=== PATIENT | male | born 1940 | race Caucasian/White ===

== ENCOUNTER → 2022-11-02 | Outpatient (CLI) | payer MEDICARE, SELFPAY ==
--- NOTE | 2022-11-02 12:48 | CT_ITS ---
INDICATION: Chest and back pain, possible thoracic aortic aneurysm EXAMINATION: CT CHEST WITH CONTRAST - CT Chest W/ Contrast Injection TECHNIQUE: Helically acquired images were obtained of the chest following IV contrast. A radiation dose optimization technique was used for this scan. IV Contrast dosage and agent: COMPARISON: None. FINDINGS: LUNGS, PLEURA AND LARGE AIRWAYS: Lung windows show the lungs to be normally expanded. No superimposed infiltrate, effusion, or suspicious noncalcified nodule. There is a minimal amount of bibasilar atelectasis. THYROID: No thyroid lesions. HEART AND PERICARDIUM: There has been a remote CABG. No pericardial effusion. There is aneurysmal dilatation of the descending thoracic aorta at 5.28 cm without evidence of dissection. No aneurysmal dilatation of the descending thoracic aorta noted. VESSELS: No obvious central pulmonary embolism although this study was not performed with the pulmonary embolism protocol. MEDIASTINUM AND AHMET: No suspicious mediastinal or hilar adenopathy. Esophagus is unremarkable. No hiatal hernia. UPPER ABDOMEN: Limited cuts through the upper abdomen show fatty infiltration of the liver, pancreatic atrophy BONES: Bony structures show degenerative change CT/Chest WITH Contrast IMPRESSION: Aneurysm dilatation of the descending thoracic aorta without evidence of dissection, no periaortic fluid to suspect leak or rupture No acute pulmonary process Remote CABG Electronically Signed: Wisam Lacey MD at 13:38 EDT ,
[2022-11-02 13:35] LABS: CREATININE FINGERSTICK 1.1 mg/dL (0.70-1.30); EGFR FINGERSTICK > 60.0000 mL/min (>60)
== END | disposition home or self-care (01) ==
LOC: CT 12:43
PROVIDERS: PCP Family Medicine; Referring Provider Family Medicine; Visit Provider Family Medicine
DX: I71.20 Thoracic aortic aneurysm, without rupture, unspecified (principal)
CPT/HCPCS: 71260; Q9967

== ENCOUNTER → 2022-11-23 | Outpatient (CLI) | payer MEDICARE, SELFPAY ==
--- NOTE | 2022-11-23 09:51 | AAVD_ITS ---
Reason For Study: Vascular Disease Aorta Measurements Aorta Doppler Measurements Proximal aorta measures3.46cm x 3.43cm. in cross- Peak systolic flow velocities within the proximal sectional axis. aorta measure 93 cm/sec. Proximal aorta measures3.02cm. in longitudinal Peak systolic flow velocities within the mid aorta axis. measure 65 cm/sec. Mid aorta measures3.62cm x 3.72cm. in cross- Peak systolic flow velocities within the distal sectional axis. aorta measure 53 cm/sec. Mid aorta measures3.40cm. in longitudinal axis. Intraluminal thrombus noted Mid Aorta. Distal aorta measures2.38cm x 2.40cm. in cross- sectional axis. Distal aorta measures2.39cm. in longitudinal axis. Left Iliac Artery Left iliac artery measures 1.28cm x 1.15 cm. in the cross-sectional axis. Left iliac artery measures 1.22 cm. in the longitudinal axis. Peak systolic velocity in the left iliac artery measures 102 cm/sec. Right Iliac Artery Right iliac artery measures 0.92cm x 1.13 cm. in the cross-sectional axis. Right iliac artery measures 1.01 cm. in the longitudinal axis. Peak systolic velocity in the right iliac artery measures 89 cm/sec. Procedure Aorta IVC Iliac vasculature or bypass grafts [id number]. Exam performed in department. VL/Abd Aortic/IVC Duplex scan Interpretation Summary Aortic aneurysm 3.72cm. Ordering Physician: Michele Han Referring Physician: Geovanny Moreno Performed By: Marietta Del Castillo, ELBA, RVT
--- NOTE | 2022-11-23 09:52 | ART_ITS ---
Reason For Study: Vascular Disease Procedure A bilateral lower extremity continuous wave Doppler with analog waveform analysis and ankle brachial indexes. Left Segmental Pressures Left brachial= 179mmHg. Left posterior tibial artery = 193mmHg. Left dorsalis pedis artery = 184mmHg. Left digit = 190 mmHg. Right Segmental Pressures Right brachial= 175mmHg. Right posterior tibial artery = 205mmHg. Right dorsalis pedis artery = 185mmHg. Right digit = 170 mmHg. Indices The right ankle brachial index by the posterior tibial artery is 1.15. The right ankle brachial index by the dorsalis pedis is 1.03. The right digital-brachial index is 0.95. The left ankle brachial index by the posterior tibial artery is 1.08. The left ankle brachial index by the dorsalis pedis is 1.03. The left digital-brachial index is 1.06. VL/Ankle Brachial Index Interpretation Summary Bilateral no significant occlussive disease with triphasic flow and KEVIN 1.15 an d 1.08. Ordering Physician: Michele Han Referring Physician: Geovanny Moreno Performed By: Marietta Del Castillo RDCS/RVT
== END | disposition home or self-care (01) ==
LOC: CVS 09:48
PROVIDERS: PCP Family Medicine; Referring Provider Surgery Vascular Surgery; Visit Provider Surgery Vascular Surgery
DX: I71.43 Infrarenal abdominal aortic aneurysm, without rupture (principal); I73.9 Peripheral vascular disease, unspecified
CPT/HCPCS: 93922; 93978

== ENCOUNTER → 2023-08-05 | Outpatient (CLI) | payer MEDICARE, SELFPAY ==
--- NOTE | 2023-08-05 08:23 | CT_ITS ---
STUDY: CTA ABDOMEN AND PELVIS WITH CONTRAST REASON FOR EXAM: Male, 83 years old. 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 IV 100mL Isovue-370 was administered. Sagittal and coronal images were reconstructed. 3-D images were reconstructed. Individualized dose optimization techniques were used for this CT. COMPARISON: None. FINDINGS: Minimal degree of bibasilar atelectasis and/or scarring. Coronary artery calcification. Prior CABG . Normal liver. There are surgical clips in the gallbladder fossa consistent with a prior cholecystectomy. Normal spleen. Normal pancreas. Normal bilateral adrenal glands. Normal right kidney. This is 1.7 cm cyst in the posterior inferior aspect of the left kidney. This are 1.2 cm nonobstructive calculus in the midportion of the left kidney. Normal visualized stomach. Normal small intestine. There are multiple colonic diverticula consistent with diverticulosis. The appendix is visualized and appears normal. There is a saccular juxtarenal abdominal aortic aneurysm with a transverse dimension of 5 cm. Mural thrombus is seen. The distal abdominal aorta is tortuous. Calcific plaques are seen. Normal inferior vena cava. Normal retroperitoneum. Normal urinary bladder. There is enlargement of the prostate gland. The prostate measures 4.3 cm 5.2 cm. This causes indentation of the bladder base. Normal abdominal wall. There are diffuse degenerative changes of the visualized lumbar spine. Straightening of the normal lumbar lordosis. Status post left total hip replacement. CT/CTA Abd/Pelvis W/WO Contrast IMPRESSION: Saccular juxtarenal abdominal aortic aneurysm with a transverse dimension of 5 cm. Mural thrombus. Prostatic enlargement. Sigmoid diverticulosis. Electronically Signed: Sagar Armenta MD at 13:33 EST ,
[2023-08-05 08:50] LABS: CREATININE FINGERSTICK < 1.0 mg/dL (0.70-1.30); EGFR FINGERSTICK > 60.0000 mL/min (>60)
== END | disposition home or self-care (01) ==
LOC: CT 08:21
PROVIDERS: PCP Family Medicine; Referring Provider Surgery Vascular Surgery; Visit Provider Surgery Vascular Surgery
DX: I71.42 Juxtarenal abdominal aortic aneurysm, without rupture (principal); Z95.1 Presence of aortocoronary bypass graft
CPT/HCPCS: 74174; Q9967

== ENCOUNTER → 2024-02-07 | Outpatient (CLI) | payer MEDICARE, SELFPAY ==
--- NOTE | 2024-02-07 12:46 | CT_ITS ---
INDICATION: AAA, descending TAA EXAMINATION: CTA CHEST, ABDOMEN AND PELVIS WITH CONTRAST - TECHNIQUE: A CTA of the chest, abdomen, and pelvis is obtained with sagittal and coronal reconstructed MIP views. Three-dimensional surface rendered sequence of the thoracic and abdominal aorta was obtained. The protocol utilizes one or more of the following dose reduction techniques: automated exposure control, adjustment of mA and/or kV according to patient size,and/or use of iterative reconstruction technique. 100 mL of Isovue-370. Oral contrast: None. RADIATION DOSAGE (If Supplied By Facility): CTDIvol = ( 18.98 ) mGy, DLP = ( 1253.05 ) mGycm COMPARISON: Prior study dated: 08/05/2023 FINDINGS: CT CHEST: THORACIC AORTA: Ascending thoracic aortic aneurysm measuring up to 4.7 cm is again seen. Tortuosity of the descending thoracic aorta. Focal saccular dilatation of the left lateral aspect of the mid descending thoracic aorta measuring up to 3.1 cm. No evidence of dissection. ABDOMINAL AORTA: Atherosclerotic calcifications and tortuosity of the abdominal aorta. Saccular aneurysm about the level of the renal arteries measuring up to 5.2 cm in transverse diameter extending for a length of approximately 4.5 cm with mural thrombus peripherally essentially unchanged since prior exam. There is focal collection or ulceration laterally. LUNGS: The lungs are well-expanded without acute or chronic changes. No effusions or pneumothorax. MEDIASTINUM: The thyroid gland is normal. No mediastinal or hilar adenopathy. HEART: The heart is enlarged. No evidence of pericardial effusion. Coronary calcifications are seen. CT ABDOMEN AND PELVIS: LIVER: No focal lesion is seen in the liver considering arterial phase of scanning. GALLBLADDER: Absent gallbladder likely surgically removed. SPLEEN: Heterogeneous enhancement due to arterial phase. No focal lesion is definitely seen. PANCREAS: Atrophic pancreas. No focal lesion is seen. ADRENAL GLANDS: No adrenal nodules. KIDNEYS AND URETERS: 1.4 cm nonobstructing stone in the midpole of the left kidney. 2 cm cyst in the left kidney appears to be simple and unchanged for which no further follow-up is needed. No evidence of hydronephrosis. STOMACH: Normal. SMALL BOWEL: No abnormal distention of the small bowel. MESENTERY: No mesenteric inflammation. No ascites. COLON: Sigmoid diverticulosis. No evidence of acute diverticulitis. The colon otherwise is normal. There is a large fatty ileocecal valve. APPENDIX: No evidence of acute appendicitis. IVC: Not well enhanced. RETROPERITONEUM: No retroperitoneal lymphadenopathy. PELVIC STRUCTURES: The bladder is not distended and difficult to evaluate. Enlarged prostate. SOFT TISSUES ABDOMEN: The anterior abdominal wall is normal. SOFT TISSUE CHEST: The extrathoracic soft tissues are normal. BONES: Left hip arthroplasty. CT/CTA Chst, Abd, Pel W and/or WO IMPRESSION: 1. Ascending thoracic aortic aneurysm essentially unchanged prior exam. 2. Focal saccular abdominal aortic aneurysm about the level of the renal arteries for which vascular surgery consultation is recommended. 3. Diverticulosis without evidence of acute diverticulitis. 4. Nonobstructing stone in the left kidney without evidence of hydronephrosis. 5. Enlarged prostate. Normal contrast-enhanced CT of the chest. Normal contrast-enhanced CT of the abdomen and pelvis. Electronically Signed: Yanick Cook MD at 14:44 EDT ,
[2024-02-07 13:38] LABS: CREATININE FINGERSTICK 1.2 mg/dL (0.70-1.30)
== END | disposition home or self-care (01) ==
LOC: CT 12:42
PROVIDERS: PCP Family Medicine; Referring Provider Physician Assistant; Visit Provider Physician Assistant
DX: I71.40 Abdominal aortic aneurysm, without rupture, unspecified (principal); I71.23 Aneurysm of the descending thoracic aorta, without rupture
CPT/HCPCS: 71275; 74174; Q9967

== ENCOUNTER → 2024-05-29 | Outpatient (CLI) | payer MEDICARE, SELFPAY | END | disposition home or self-care (01) | LOC: PSN 08:52 | PROVIDERS: PCP Family Medicine; Referring Provider Internal Medicine Cardiovascular Disease; Visit Provider Internal Medicine Cardiovascular Disease | DX: Z95.1 Presence of aortocoronary bypass graft (principal); Z98.61 Coronary angioplasty status | CPT/HCPCS: 93225; 93226 ==

== ENCOUNTER → 2024-06-01 | Outpatient (CLI) | payer MEDICARE, SELFPAY ==
--- NOTE | 2024-06-01 06:48 | ECHOD_ITS ---
Reason For Study: CORONARY ARTERY DISEASE Procedure This was a 2D Doppler, Color Flow transthoracic echocardiogram. Exam performed in department. Left Ventricle Normal LV size. Moderate concentric left ventricular hypertrophy. Left ventricular systolic function is normal. The left ventricular ejection fraction is 60 %. Stage 1 diastolic dysfunction. No regional wall motion abnormalities noted. Right Ventricle Normal RV size. Normal systolic function. Atria Normal left atrium. Normal right atrium. Mitral Valve Normal mitral valve. Tricuspid Valve Normal tricuspid valve. Aortic Valve Trisinus/trileaflet aortic valve. Pulmonic Valve Normal pulmonic valve. Trivial pulmonic valve insufficiency. Great Vessels Mild to moderately dilated aortic root. The pulmonary artery is normal size. Inferior vena cava collapse with sniff. Pericardium/Pleural No pericardial effusion. MMode/2D Measurements & Calculations LVIDd: 4.0 cm IVSd: 1.7 cm LVOT diam: 2.2 cm LVIDs: 2.3 cm LVPWd: 1.4 cm LVOT area: 3.7 cm2 RVDd: 4.0 cm FS: 42.6 % asc Aorta Diam: 4.0 cm LAV(MOD-bp): 38.6 ml LVAd ap4: 28.8 cm2 LAV(MOD-bp) Indexed: 18.5 ml/m2 LVLd ap4: 7.8 cm LAV(MOD-sp2): 41.2 ml EDV(MOD-sp4): 85.0 ml LAV(MOD-sp4): 36.6 ml EDV(sp4-el): 89.7 ml LVAs ap4: 16.9 cm2 LVLs ap4: 6.9 cm ESV(MOD-sp4): 33.9 ml ESV(sp4-el): 35.1 ml EF(MOD-sp4): 60.1 % EF(sp4-el): 60.8 % LVAd ap2: 25.1 cm2 SV(MOD-sp4): 51.1 ml SV(MOD-sp2): 41.0 ml LVLd ap2: 7.9 cm EDV(MOD-sp2): 64.7 ml EDV(sp2-el): 67.3 ml LVAs ap2: 13.0 cm2 LVLs ap2: 6.7 cm ESV(MOD-sp2): 23.6 ml ESV(sp2-el): 21.5 ml EF(MOD-sp2): 63.4 % SV(sp4-el): 54.6 ml Ao sinus diam: 4.[address] Junction: 3.4 cm LA dimension(2D): 4.6 cm LA A4 area: 15.4 cm2 RA A4 area: 12.9 cm2 TAPSE: 0.92 cm Time Measurements MV dec time: 0.40 sec Doppler Measurements & Calculations MV E max wilberto: 66.0 cm/sec Lat Peak E' Wilberto: 9.8 cm/sec Med Peak E' Wilberto: 4.5 cm/sec MV A max wilberto: 109.4 cm/sec E/E' lat: 6.8 E/E' med: 14.8 MV E/A: 0.60 MV dec slope: 164.2 cm/sec2 Ao V2 max: 114.0 cm/sec LV V1 max: 97.5 cm/sec Ao max P.2 mmHg LV V1 max P.8 mmHg Ao V2 mean: 71.2 cm/sec LV V1 mean P.9 mmHg Ao mean P.3 mmHg LV V1 mean: 64.6 cm/sec Ao V2 VTI: 23.8 cm LV V1 VTI: 23.6 cm AV (velocity ratio): 0.99 DEVIN(I,D): 3.7 cm2 DEVIN(V,D): 3.2 cm2 SV(LVOT): 88.3 ml PA V2 max: 97.2 cm/sec PI end-d wilberto: 113.1 cm/sec PA max PG (full): 2.3 mmHg ECHO/Echo Complete Interpretation Summary Normal LV size. Moderate concentric left ventricular hypertrophy. Left ventricular systolic function is normal. The left ventricular ejection fraction is 60 %. Stage 1 diastolic dysfunction. Mild to moderately dilated aortic root. Ordering Physician: Santiago Monique Referring Physician: MD Josh Geovanny Performed By: Patito Tinsley ABE
--- NOTE | 2024-06-01 16:18 | STRESSREP ---
Stress Test Report Pharmacologic myocardial perfusion stress test. 84-year-old male with a history of coronary artery disease Resting EKG demonstrates sinus bradycardia with a first-degree AV block and a right bundle branch block with a rate of 57 bpm. Resting blood pressure is 184/78 mmHg. 0.4 mg of regadenoson was infused per usual protocol followed by rapid intravenous saline flush injection. Continuous EKG monitoring was performed. The maximum heart rate was 96 bpm which was 71% of max impacted heart rate the maximum workload was 1 metabolic equivalent. At rest there were no ST or T wave changes noted to suggest ischemia and at peak infusion nonspecific ST changes were noted which did not meet the criteria for ischemia. No clinical angina is noted. The final blood pressure was 184/78 mmHg. Myocardial perfusion protocol. 13.9 mCi of technetium 99m sestamibi was injected at rest. 0.4 mg of regadenoson was infused per usual protocol. At peak infusion 41.4 mCi of technetium 99m sestamibi was injected stress images were obtained stress and rest images were reconstructed and compared in the short axis vertical long and horizontal long axis. Gated images were also obtained. Perfusion SPECT analysis: Review of the stress images demonstrate normal uptake of tracer noted in all areas of the myocardium. The resting images similar demonstrated normal uptake of tracer noted in all areas of the myocardium. No areas of reversibility are noted to suggest ischemia and no previous infarct is noted. Gated SPECT analysis: The gated ejection fraction is 70%. Conclusion: Normal pharmacologic myocardial perfusion stress test. Preserved ejection fraction.
== END | disposition home or self-care (01) ==
LOC: CVS 06:47
PROVIDERS: PCP Family Medicine; Referring Provider Internal Medicine Cardiovascular Disease; Visit Provider Internal Medicine Cardiovascular Disease
DX: I25.10 Atherosclerotic heart disease of native coronary artery without angina pectoris (principal); Z95.1 Presence of aortocoronary bypass graft; Z98.61 Coronary angioplasty status
CPT/HCPCS: 78452; 93017; 93306; A9500; A4216; J2785

== ENCOUNTER → 2024-06-22 | Outpatient (CLI) | payer MEDICARE, SELFPAY ==
[2024-06-22 10:39] LABS: Absolute Lymphocyte Count 1.85 X10^3/uL (0.83-4.51); Absolute Neutrophil Count 7.7 X10^3/uL (2.0-7.7); Basophil# 0.02 X10^3/uL; Basophil% 0.2 % (0-1); Eosinophil# 0.07 X10^3/uL; Eosinophils% 0.6 % (0-5); Hematocrit 45.1 % (40-54); Hemoglobin 15.6 g/dL (13.0-16.5); Lymphocyte # 1.85 X10^3/ul (0.83-4.51); Lymphocyte % 17.1 % (19-41); Mean Corp Hgb Conc 34.6 g/dL (32-36); Mean Corpuscular Hgb 32.1 pg (27.0-32.0); Mean Corpuscular Volume 92.8 fL (80-94); Mean Platelet Vol. 9.8 fl (6.2-12.0); Monocyte# 1.07 X10^3/uL; Monocyte% 9.9 % (0-10); NRBC Flagged by Analyzer 0 % (0-5); Neutrophil # 7.74 X10^3/uL (2.7-7.7); Neutrophil % 71.6 % (47-70); Platelet Count 218 K/mm3 (150-450); RBC Distribution Width CV 12.5 % (11.6-14.6); RBC Distribution Width SD 42.3 fl (35.1-43.9); Red Blood Count 4.86 M/mm3 (4.6-6.2); White Blood Count 10.8 K/mm3 (4.4-11.0)
[2024-06-22 11:03] LABS: BNP,B-Type NATRIURETIC PEPTIDE 97.1 pg/mL (0-100)
[2024-06-22 11:19] LABS: ALB/GLOB Ratio 1.3 RATIO (0.9-2.4); AST(SGOT) 20 U/L (15-37); Alanine Aminotransfer ALT/SGPT 36 U/L (16-61); Albumin, Serum 3.9 g/dL (3.2-5.0); Alkaline Phosphatase 174 U/L (45-117); Anion Gap 7 (5-15); BUN 16 mg/dL (7-18); Calcium,Total 8.9 mg/dL (8.5-10.1); Chloride 110 mmol/L (98-107); Creatinine, Serum 1.14 mg/dL (0.70-1.30); EST Glomerular Filtration Rate 65 mL/min (>60); Est Glom Filt Rate - Afr Amer 78 mL/min (>60); Globulin 3.1 g/dL (2.2-4.2); Glucose 119 mg/dL (74-106); Magnesium 2.3 mg/dL (1.6-2.6); Potassium 4.2 mmol/L (3.5-5.1); Sodium Level 139 mmol/L (136-145); T4 Free Direct 1.03 ng/dL (0.76-1.46)
== END | disposition home or self-care (01) ==
PROVIDERS: PCP Family Medicine; Referring Provider Nurse Practitioner Family; Visit Provider Nurse Practitioner Family
DX: R53.83 Other fatigue (principal); I10 Essential (primary) hypertension; R00.1 Bradycardia, unspecified; R06.00 Dyspnea, unspecified
CPT/HCPCS: 36415; 80053; 83735; 83880; 84439; 84443; 85025

== ENCOUNTER → 2024-07-11 | Outpatient (CLI) | payer MEDICARE, SELFPAY ==
--- NOTE | 2024-07-11 09:34 | CDU_ITS ---
Reason For Study: DIZZINESS, CAD Rt. Velocities/BP Lt. Velocities/BP Prox CCA 89.7/6.2 cm/sec. Prox CCA 110.7/15.7 cm/sec. Mid CCA 111.3/8.1 cm/sec. Mid CCA 116.2/15.7 cm/sec. Dist CCA 75.6/10.6 cm/sec. Dist CCA 84.2/13.0 cm/sec. Prox ICA 94.1/14.9 cm/sec. Prox ICA 81.8/11.8 cm/sec. Mid ICA 89.7/8.4 cm/sec. Mid ICA 68.3/12.8 cm/sec. Dist ICA 63.3/8.4 cm/sec. Dist ICA 37.6/8.4 cm/sec. Rt. ICA/CCA = 94.1/111.3=0.8. Lt. ICA/CCA = 81.8/116.2=0.7. Prox ECA 83.1/4.0 cm/sec. Prox ECA 111.3/8.1 cm/sec. Rt. Vert. 55.6/7.3 cm/sec. Lt. Vert. 59.1/15.7 cm/sec. Right Extracranial There is intimal thickening but no significant atherosclerotic plaque noted in the right common carotid artery. There is heterogeneous, irregular atherosclerotic plaque noted in the right internal carotid artery. The right internal carotid artery is not well visualized. The atherosclerotic plaque causes acoustic shadowing. There is heterogeneous, irregular atherosclerotic plaque noted in the right external carotid artery. Antegrade flow is noted in the right vertebral artery. Left Extracranial There is heterogeneous, irregular atherosclerotic plaque noted in the left common carotid artery. There is heterogeneous, irregular atherosclerotic plaque noted in the left internal carotid artery. The left internal carotid artery is very tortuous. The atherosclerotic plaque causes acoustic shadowing. There is intimal thickening but no significant atherosclerotic plaque noted in the left external carotid artery. Antegrade flow is noted in the left vertebral artery. Procedure Carotid Duplex 13974. This is a Carotid Duplex examination using B-mode, color flow and specral Doppler. The study was technically difficult. Exam performed in department. VL/Carotid Duplex Ultrasound Interpretation Summary Mild (<50%) stenosis right extracranial internal carotid. Mild (<50%) stenosis left extracranial internal carotid. Patent and antegrade vertebrals bilaterally. Limited/poor visualization, alternative imaging may be beneficial. Ordering Physician: Abran Del Castillo Referring Physician: Geovanny Moreno Performed By: Rocio Sung, ELBA, RVT
== END | disposition home or self-care (01) ==
LOC: CVS 09:34
PROVIDERS: PCP Family Medicine; Referring Provider Nurse Practitioner Family; Visit Provider Nurse Practitioner Family
DX: I65.22 Occlusion and stenosis of left carotid artery (principal)
CPT/HCPCS: 93880

== ENCOUNTER 2024-11-21 03:29 | Emergency (ER) | payer MEDICARE, SELFPAY ==
[2024-11-21 03:30] VITALS: BP 212/98; PULSE 62; RESP 15; TEMP 36.4; O2SAT 98; BMI 28.4
--- NOTE | 2024-11-21 03:59 | ED.VIS.BACK ---
HPI History of Present Illness Chief Complaint: Back Informant: patient and spouse/S.O. Onset/Context/Timing Onset: Days Context: Gradual Onset Timing: Continuous Quality: Sharp Location: Lumbar Current Severity: Mild Maximum Severity: Moderate Worsened by: improves with Movement Relieved by: Remaining Still Associated Symptoms Associated Symptoms: Negative for Numbness, Tingling, Radiation to Right Leg, Radiation to Left Leg, Fever, Abdominal Pain, Dysuria, Unable to Ambulate, Unable to Transfer, Urinary Retention, Urinary Incontinence, Constipation or Fecal Incontinence Narrative Narrative: 84-year-old male extensive past medical history of hypertension, kidney stones, CAD, CABG, known inoperable infrarenal AAA. He recently followed up with his vascular surgeon at the [facility]. They told him this is really not operable due to his age, overall medical condition and operative risk such as , paralysis or kidney failure after the surgery. Patient states the last several days she has had back pain. Worse with movement. No falls or trauma. He is never had back surgery. He really denies any abdominal pain. No leg weakness. Worse with movement. Prior similar symptoms: Yes Recent Illness/Hospitalization: No PFSH PFSH Medical History GERD (gastroesophageal reflux disease) Diverticulitis Fatigue Right leg numbness Sinus bradycardia HLD (hyperlipidemia) Right bundle branch block (RBBB) Hypertension Sleep apnea in adult Chest pain in adult Anxiety Coronary artery disease Erectile dysfunction Descending thoracic aortic aneurysm AAA (abdominal aortic aneurysm) Home Medications ?Medication ?Instructions ?Recorded ?Last Taken ?Type aspirin 81 mg tablet,delayed 81 mg PO DAILY 12/05/16 12/04/16 History release (Aspir-Low) atorvastatin 40 mg tablet 40 mg PO QHS 12/05/16 12/04/16 History acetaminophen 325 mg tablet 650 mg (2 x 325 mg) PO Q4H PRN PRN 12/06/16 Unknown Rx (Tylenol) Headache/Temp>99F #0 TABLETS losartan 50 mg tablet 50 mg PO BID 04/04/24 Unknown History folic acid 400 mcg tablet 0.8 mg PO DAILY 05/17/24 Unknown History amlodipine 10 mg tablet 10 mg PO QHS 06/22/24 Unknown History omeprazole 40 mg capsule,delayed 40 mg PO QDAY 06/22/24 Unknown History release fluoxetine 40 mg capsule 40 mg PO DAILY 11/21/24 Unknown History Allergy/AdvReac Type Severity Reaction Status Date / Time lisinopril Allergy Intermediate PT UNSURE Verified 11/21/24 03:29 OF REACTION pravastatin (From Pravachol) Allergy Intermediate PT UNSURE Verified 11/21/24 03:29 OF REACTION bacitracin (From Neosporin AdvReac Intermediate Itching Verified 11/21/24 03:29 ([id number])) neomycin (From Neosporin AdvReac Intermediate Itching Verified 11/21/24 03:29 ([id number])) polymyxin B (From Neosporin AdvReac Intermediate Itching Verified 11/21/24 03:29 ([id number])) hydrocodone bitartrate (From AdvReac Itching Verified 11/21/24 03:29 Vicodin) Family History Other CAD (coronary artery disease) CVA (cerebral vascular accident) Cancer Heart disease Kidney disease Surgical History S/P CABG x 1 (~04/23/93) History of left hip replacement Hx of rotator cuff surgery Hx laparoscopic cholecystectomy S/P CABG x 3 (02/04/16) S/P PTCA (percutaneous transluminal coronary angioplasty) History of heart bypass surgery (~2015) Social History Smoking Status: Former smoker Tobacco: How many years used: 12 how long ago did patient quit smokin years ago alcohol intake: current alcohol intake frequency: holidays/special occasions only substance use type: does not use caffeine: Yes Type: coffee Number of servings: 3 ROS ROS ED ROS Narrative Denies recent illness. Constitutional Constitutional ED: Denies chills or fever(s) Eyes Eyes: Denies blurry vision ENT ENT ED: Denies ear pain Cardiovascular Cardiovascular: Denies chest pain Respiratory/Chest Respiratory/Chest: Denies dyspnea Gastrointestinal Gastrointestinal: Denies abdominal pain, constipation, melena, nausea or vomiting Genitourinary Genitourinary ED: Denies dysuria or hematuria Musculoskeletal Musculoskeletal: Reports back pain; Denies arthralgias Integumentary Denies abscess or Abrasions Neurologic Neurologic: Denies headache(s) Psychiatric Psychiatric: Denies anxiety Hematologic/Lymphatic Hematologic/Lymphatic: Denies easy bleeding Allergic/Immunologic Allergic/Immunologic ED: Denies mouth swelling or tongue swelling EXAM Physical Exam Narrative Exam Narrative: 84-year-old male vital signs are stable afebrile. He does not look septic toxic. He is currently no distress. Patient blood pressure is elevated 212/98. Companied by his . She drove them up. H EENT exam pupils round reactive light. Moist mucous membranes. Neck nontender no lymphadenopathy. Lungs clear to auscultation bilaterally. Heart rate about 60 no appreciable murmur. Chest wall and ribs nontender. Abdomen soft nontender. No peritoneal signs. No reproducible abdominal pain. Moving all 4 extremities. Neurovascularly intact. When he lists his right leg he has pain across his lower back. No cauda equina. No saddle anesthesia. Normal medial thigh and lower leg sensation. Normal dorsi plantarflexion. He has some reproducible pain along his lower back. There is no ecchymosis or bruising. No redness or warmth. No signs of trauma. Neurologically is awake and alert no focal motor deficits. Const Vital Signs: 11/21/24 03:30 Temperature 97.5 F L Temperature Source Oral Pulse Rate 62 Respiratory Rate 15 Blood Pressure 212/98 H Blood Pressure Mean 136 Pulse Ox 98 Oxygen Delivery Method Room Air Positive well nourished and well developed; Negative for cachectic, contractures or unkempt General Appearance ED: well developed and NAD; Negative for unkempt, cachectic, contractures or pallor Nutritional Appearance: Negative for cachectic HEENT Reports moist mucous membranes Negative for trauma or tenderness Eyes PERRL and EOMs intact bilaterally Neck no lymphadenopathy, supple and no JVD General: Negative for tenderness Resp normal respiratory effort and clear to auscultation bilaterally Cardio regular rate, regular rhythm, S1 normal heart sound, S2 normal heart sound and no murmurs GI normal to inspection, nondistended, normoactive bowel sounds, soft to palpation, non-tender, non-distended and no masses GI Narrative: Nontender. No reproducible abdominal pain. Palpation: Negative for tender, guarding, mass or rebound tenderness present Back/Spine normal to inspection; Negative for no thoracic nor lumbar tenderness Back/Spine Narrative: Paralumbar tenderness. General Back: Negative for CVA tenderness Cervical Spine: Negative for cervical spine tenderness Extremity normal to inspection and no clubbing, cyanosis or edema Neuro oriented x3 and no sensory deficits noted Motor Exam: strength 5/5 throughout Psych mental status grossly normal Appearance: Negative for unkempt Attitude: No agitated Mood & Affect: Negative for depressed, sad or tearful Skin no rashes or lesions noted and no wounds General Skin Exam: Negative for jaundice or pallor Lesions: No lesion noted Rashes: No rashes noted Trauma: Negative for abrasion or puncture Wounds: Negative for wounds noted Image ED - Body Diagram Man:  1. Lower back pain. MDM MDM MDM Narrative Medical decision making narrative: 84-year-old male with known inoperable infrarenal AAA. Having musculoskeletal sounding back pain last several days. Worse with movement. Somewhat reproducible. Good strength and sensation of the lower extremities. We discussed treatment options. He really does not want this worked up and clinically I think it is musculoskeletal not his AAA. He had 2 brothers 1 in his 60s and the other in his 70s from aneurysms. Patient understands he more has to live with this and he is not a surgical candidate. He will be given an injection of IM morphine. P.o. Zofran. Discharged to home. Use Tylenol Motrin at home. Follow-up with his doctor as needed. Both he and his are comfortable with the plan. Discharge Plan Triage Chief Complaint: Back ED Provider: Bethel Mercado Dx/Rx/DC Orders Clinical Impression: Back pain, History of abdominal aortic aneurysm (AAA), History of coronary artery disease, Hx of coronary artery bypass graft Instructions: ED Back Pain (Acute or Chronic) Prescriptions: No Action losartan 50 mg tablet 50 mg PO BID folic acid 400 mcg tablet 0.8 mg PO DAILY omeprazole 40 mg capsule,delayed release(DR/EC) 40 mg PO QDAY amlodipine 10 mg tablet 10 mg PO QHS atorvastatin 40 MG tablet 40 mg PO QHS Patient Comments: cholesterol aspirin [Aspir-Low] 81 MG tablet,delayed release (DR/EC) 81 mg PO DAILY Patient Comments: heart acetaminophen [Tylenol] 325 MG tablet 650 mg PO Q4H PRN PRN (Reason: Headache/Temp>99F) Qty: 0 0RF fluoxetine 40 mg capsule 40 mg PO DAILY Primary Care Provider: Geovanny Moreno Referrals: Geovanny Moreno MD [Primary Care Provider] - As Needed Activity Restrictions/Additional Instructions: This appears to be musculoskeletal back pain. I would use Tylenol and Motrin at home. Motrin like 2 in the morning and 2 in the evening. Hot shower, warm bath. Massage. Follow-up with your primary care physician if Tylenol and Motrin are controlling your pain and may want to write you for some pain medication. Print Language: Norwegian Disposition Disposition: Home, Self Care
[2024-11-21] MEDS: Ondansetron ODT 4 MG Tablet PO (04:09)
[2024-11-21] MEDS: Morphine 4 MG/ML Syringe 6 MG IM (04:09)
[2024-11-21 04:13] VITALS: BP 142/65; PULSE 59; RESP 14; TEMP 36.8; O2SAT 97
== END 2024-11-21 04:22 | disposition home or self-care (01) ==
LOC: ED 04:01
PROVIDERS: Emergency Provider Emergency Medicine; PCP Family Medicine; Visit Provider Emergency Medicine
DX: M54.50 Low back pain, unspecified (principal); I25.10 Atherosclerotic heart disease of native coronary artery without angina pectoris; E78.5 Hyperlipidemia, unspecified; I10 Essential (primary) hypertension; G47.30 Sleep apnea, unspecified; Z79.899 Other long term (current) drug therapy; Z79.82 Long term (current) use of aspirin; Z95.1 Presence of aortocoronary bypass graft; Z87.891 Personal history of nicotine dependence
CPT/HCPCS: 96372; 99282

== ENCOUNTER → 2025-07-23 | Outpatient (CLI) | payer MEDICARE, SELFPAY ==
[2025-07-23 09:12] LABS: AST(SGOT) 23 U/L (<=37); Alanine Aminotransfer ALT/SGPT 25 U/L (<=46); Albumin, Serum 4.0 g/dL (3.4-4.8); Alkaline Phosphatase 214 U/L (40-129); Anion Gap 8 (5-15); BUN 14 mg/dL (4-19); BUN/Creat Ratio 13.6 RATIO (10-20); Calcium,Total 9.3 mg/dL (7.6-11.0); Carbon Dioxide 25.6 mmol/L (21.0-32.0); Chloride 107 mmol/L (98-108); Cholesterol 115 mg/dL (<=200); Globulin 2.2 g/dL (2.2-4.2); Glucose 139 mg/dL (70-99); Low Density Lipoprotein Calc. 56 mg/dL; Potassium 4.3 mmol/L (3.3-5.1); Triglycerides 92 mg/dL; Very Low Density Lipoprotein 18 mg/dL (5-40); cholesterol:hdl ratio screen 2.77
== END | disposition home or self-care (01) ==
LOC: LAB 08:07
PROVIDERS: PCP Pediatrics; Referring Provider Student in an Organized Health Care Education/Training Program; Visit Provider Student in an Organized Health Care Education/Training Program
DX: E78.5 Hyperlipidemia, unspecified (principal); I10 Essential (primary) hypertension
CPT/HCPCS: 36415; 80053; 80061

== ENCOUNTER → 2025-08-09 | Outpatient (CLI) | payer MEDICARE, SELFPAY ==
--- NOTE | 2025-08-09 09:43 | ECHOD_ITS ---
Reason For Study Reason For Study: MURMUR Procedure This was a 2D Doppler, Color Flow transthoracic echocardiogram. Exam performed in department. Left Ventricle Normal LV size. The left ventricular ejection fraction is 55 %. No regional wall motion abnormalities noted. Right Ventricle Normal RV size. Normal systolic function. Atria Normal left atrium. Normal right atrium. Mitral Valve Normal mitral valve. Tricuspid Valve Normal tricuspid valve. Aortic Valve Trisinus/trileaflet aortic valve. Mild (1+) aortic valve insufficiency. Pulmonic Valve Normal pulmonic valve. Mild (1+) pulmonic valve insufficiency. Great Vessels Mild to moderately dilated aortic root. The sinus of valsalva is moderately dilated. The pulmonary artery is normal size. Inferior vena cava collapse with respiration. Pericardium/Pleural No pericardial effusion. MMode/2D Measurements & Calculations LVIDd: 4.7 cm IVSd: 1.3 cm LVOT diam: 2.0 cm LVIDs: 2.9 cm LVPWd: 1.4 cm LVOT area: 3.1 cm2 RVDd: 3.9 cm FS: 37.9 % asc Aorta Diam: 4.1 cm LAV(MOD-bp): 50.7 ml LVAd ap4: 31.0 cm2 LAV(MOD-bp) Indexed: 24.0 ml/m2 LVLd ap4: 8.3 cm LAV(MOD-sp2): 42.0 ml EDV(MOD-sp4): 96.4 ml LAV(MOD-sp4): 59.3 ml EDV(sp4-el): 97.5 ml LVAs ap4: 15.5 cm2 LVLs ap4: 6.7 cm ESV(MOD-sp4): 30.8 ml ESV(sp4-el): 30.3 ml EF(MOD-sp4): 68.0 % EF(sp4-el): 68.9 % LVAd ap2: 27.1 cm2 SV(MOD-sp4): 65.6 ml LVLd ap2: 8.2 cm EDV(MOD-bp): 83.2 ml SI(MOD-sp4): 31.1 ml/m2 EDV(MOD-sp2): 73.2 ml ESV(MOD-bp): 25.4 ml EDV(sp2-el): 76.3 ml EF(MOD-bp): 69.5 % LVAs ap2: 12.9 cm2 LVLs ap2: 7.1 cm ESV(MOD-sp2): 20.7 ml ESV(sp2-el): 20.0 ml EF(MOD-sp2): 71.7 % SV(MOD-sp2): 52.5 ml SV(sp4-el): 67.2 ml LA A4 area: 19.4 cm2 SI(MOD-sp2): 24.9 ml/m2 LA dimension(2D): 4.5 cm RA A4 area: 21.2 cm2 TAPSE: 1.2 cm Time Measurements MV dec time: 0.30 sec Doppler Measurements & Calculations MV E max wilberto: 89.9 cm/sec Lat Peak E' Wilberto: 7.1 cm/sec Med Peak E' Wilberto: 4.0 cm/sec MV A max wilberto: 115.5 cm/sec E/E' lat: 12.7 E/E' med: 22.5 MV E/A: 0.78 Ao V2 max: 137.2 cm/sec AI max wilberto: 340.0 cm/sec MV dec slope: 298.0 cm/sec2 Ao max P.5 mmHg AI max P.2 mmHg Ao V2 mean: 103.4 cm/sec Ao mean P.6 mmHg AI dec slope: 98.8 cm/sec2 Ao V2 VTI: 35.4 cm AI P1/2t: 1008 msec AV (velocity ratio): 0.81 DEVIN(I,D): 2.5 cm2 DEVIN(V,D): 2.5 cm2 LV V1 max: 107.9 cm/sec SV(LVOT): 89.9 ml PA V2 max: 94.4 cm/sec LV V1 max P.7 mmHg LV V1 mean P.5 mmHg LV V1 mean: 74.0 cm/sec LV V1 VTI: 28.7 cm PI end-d wilberto: 105.4 cm/sec ECHO/Echo Complete Interpretation Summary Normal LV size. The left ventricular ejection fraction is 55 %. Mild to moderately dilated aortic root. The sinus of valsalva is moderately dilated. Mild (1+) aortic valve insufficiency. Ordering Physician: Quan Roche Referring Physician: Seble Cavazos Performed By: Ahsan Villa RDCS
== END | disposition home or self-care (01) ==
LOC: CVS 09:43
PROVIDERS: PCP Pediatrics; Referring Provider Student in an Organized Health Care Education/Training Program; Visit Provider Student in an Organized Health Care Education/Training Program
DX: R01.1 Cardiac murmur, unspecified (principal)
CPT/HCPCS: 93306